=== PATIENT | male | born 1940 ===

== ENCOUNTER 2023-12-16 21:30 | Inpatient (IN) | payer MEDICARE, OTHER ==
[~2023-12-16] VITALS: Ht 162.6 cm; Wt 74.8 kg
[2023-12-16 22:26] VITALS: BP 95/51; TEMP 98.2; O2SAT 95
[2023-12-16] MEDS ORDERED: REMEDY ESSENTIAL ZINC PASTE 113 GM TOP PRN (22:30)
[2023-12-16] MEDS ORDERED: ASPI81TA53 PO (22:51)
[2023-12-16] MEDS ORDERED: CARV3.12 PO (22:51)
[2023-12-16] MEDS ORDERED: CHOL10005 PO (22:51)
[2023-12-16] MEDS ORDERED: TAMS-3 PO (22:51)
[2023-12-16] MEDS ORDERED: SENN8.6T19 PO (22:51)
[2023-12-16] MEDS ORDERED: METH5TAB70 PO (22:51)
[2023-12-16] MEDS ORDERED: ZINC57OI3 TP (22:51)
[2023-12-16] MEDS ORDERED: GABA-532 PO (22:51)
[2023-12-16] MEDS ORDERED: SIMV-46 PO (22:51)
[2023-12-16] MEDS ORDERED: ACET-2154 PO (22:51)
[2023-12-16] MEDS ORDERED: INSU100V39 SQ (22:51)
[2023-12-16] MEDS ORDERED: MIDO5TAB5 PO (22:51)
[2023-12-16] MEDS ORDERED: HYDR-3980 PO (22:51)
[2023-12-16] MEDS ORDERED: INSU100V7 SQ (22:51)
[2023-12-16] MEDS ORDERED: MULT-1045 PO (22:51)
[2023-12-17 04:43] VITALS: BP 117/55; TEMP 98.2; O2SAT 98
[2023-12-17] MEDS ORDERED: MULT-213 PO (09:30)
[2023-12-17] MEDS ORDERED: MULT-594 PO (09:33)
[2023-12-17 09:38] VITALS: BP 120/62; TEMP 98; O2SAT 96
[2023-12-17] MEDS ORDERED: NICO-671 TD (10:43)
[2023-12-17] MEDS: MULTIVITAMINS,THERAPEUTIC TABLET PO SCH (11:07)
[2023-12-17] MEDS: MIDODRINE HCL 5 MG TABLET PO SCH (11:07)
[2023-12-17] MEDS: ASPIRIN EC 81 MG TABLET.DR PO SCH (11:07)
[2023-12-17] MEDS: SENNOSIDES 1 TABLET PO SCH (11:07)
[2023-12-17] MEDS: CARVEDILOL 3.125 MG TABLET PO SCH (11:08)
[2023-12-17] MEDS ORDERED: DEXTROSE 50% 50 ML DISP.SYRIN IV PRN (11:15)
[2023-12-17] MEDS: BLOOD SUGAR DIAGNOSTIC 1 EACH STRIP VI SCH (12:00)
[2023-12-17] MEDS: INSULIN LISPRO 1000 UNITS/10 ML VIAL(HUMALOG) SQ SCH (12:00)
[2023-12-17] MEDS: INSULIN REGULAR, HUMAN 300 UNIT/3 ML VIAL SQ PRN (12:01)
[2023-12-17 13:43] LABS: BASOPHILS % (AUTO) 0.2 % (0.0-2.0); EOSINOPHILS # (AUTO) 0.1 K/uL (0.0-0.7); EOSINOPHILS % (AUTO) 0.9 % (0.0-7.0); HEMOGLOBIN 9.4 g/dL (12.5-16.3); LYMPHOCYTES # (AUTO) 0.8 K/uL (0.8-4.8); LYMPHOCYTES % (AUTO) 7.4 % (20.5-51.5); MEAN CORPUSCULAR HEMOGLOBIN 33.3 uug (23.8-33.4); MEAN CORPUSCULAR HGB CONC 33 g/dL (32.5-36.3); MEAN CORPUSCULAR VOLUME 99.6 fL (73.0-96.2); MONOCYTES # (AUTO) 0.6 K/uL (0.1-1.30); MONOCYTES % (AUTO) 5.6 % (0.0-11.0); NEUTROPHILS # (AUTO) 8.7 K/uL (1.8-8.9); NEUTROPHILS % (AUTO) 85.9 % (38.5-71.5); PLATELET COUNT (AUTO) 403 K/uL (152-348); RED BLOOD CELL COUNT(AUTO) 2.81 MIL/uL (4.06-5.63); RED CELL DISTRIBUTION WIDTH 15.8 % (12.1-16.2); WHITE BLOOD COUNT (AUTO) 10.2 K/uL (3.6-10.2)
[2023-12-17 13:44] LABS: DIFFERENTIAL COMMENT 1
[2023-12-17 14:06] LABS: ALBUMIN 2.2 g/dL (3.4-5.0); BILIRUBIN,TOTAL 0.3 mg/dL (0.2-1.0); CALCIUM 8.6 mg/dL (8.5-10.1); CREATININE 0.9 mg/dL (0.6-1.3); POTASSIUM 4.7 mmol/L (3.5-5.1); TOTAL PROTEIN, SERUM 6.7 g/dL (6.4-8.2)
[2023-12-17 16:29] VITALS: BP 128/47; TEMP 97.8; O2SAT 95
[2023-12-17] MEDS: GABAPENTIN 300 MG CAPSULE PO SCH (20:52)
[2023-12-17 20:53] VITALS: O2SAT 96
[2023-12-17] MEDS: TAMSULOSIN HCL 0.4 MG CAP.SR.24H PO SCH (20:53)
[2023-12-17] MEDS: SIMVASTATIN 20 MG TABLET PO SCH (20:53)
[2023-12-17] MEDS ORDERED: INSULIN GLARGINE,HUM 300 UNITS/3 ML CARTRIDGE SQ SCH (21:00)
[2023-12-17] MEDS: INSULIN GLARGINE,HUM 300 UNITS/3 ML CARTRIDGE SQ SCH (21:01)
[2023-12-17 21:18] VITALS: BP 105/54; TEMP 98.6; O2SAT 99
[2023-12-17] MEDS: HYDROCODONE/APAP 10-325 MG TABLET PO PRN (21:58)
[2023-12-18] VITALS (7 sets, daily range): BP systolic 108–121; BP diastolic 42–47; TEMP 97.8–99; O2SAT 94–99
[2023-12-18] MEDS: CHOLECALCIFEROL 1,000 UNIT TABLET PO SCH (08:51)
[2023-12-18] MEDS: NICOTINE 7 MG/24HR PATCH TD SCH (08:52)
[2023-12-18] MEDS: METHIMAZOLE 5 MG TABLET PO SCH (08:53)
[2023-12-18] MEDS ORDERED: DEXTROSE 50% 50 ML DISP.SYRIN IV PRN (12:45)
[2023-12-18] MEDS: BLOOD SUGAR DIAGNOSTIC 1 EACH STRIP VI SCH (17:48)
[2023-12-18] MEDS: INSULIN REGULAR, HUMAN 300 UNIT/3 ML VIAL SQ PRN (22:06)
[2023-12-18] MEDS ORDERED: GUAIFENESIN/DEXTROMETHORPHAN 5 ML UDC PO PRN (23:15)
[2023-12-18] MEDS ORDERED: BENZOCAINE/MENTH/CETYLPYRD LOZENGE MM PRN (23:15)
[2023-12-19 05:20] VITALS: BP 110/44; TEMP 98.2; O2SAT 93
[2023-12-19 08:00] VITALS: BP 108/45; TEMP 98.4; O2SAT 94
[2023-12-19 16:40] VITALS: BP 126/51; TEMP 97.9; O2SAT 96
[2023-12-19 19:35] VITALS: BP 133/57; TEMP 98.1; O2SAT 95
[2023-12-19 20:35] VITALS: O2SAT 95
[2023-12-19] MEDS: GUAIFENESIN/DEXTROMETHORPHAN 5 ML UDC PO PRN (22:32)
[2023-12-20 04:43] VITALS: O2SAT 96
[2023-12-20 05:35] VITALS: BP 104/48; TEMP 98.2; O2SAT 94
[2023-12-20 07:38] VITALS: BP 112/45; TEMP 98.2; O2SAT 95
[2023-12-20 08:36] VITALS: BP 119/44; TEMP 99.2; O2SAT 91
[2023-12-20 15:18] VITALS: BP 113/42; TEMP 97.4; O2SAT 92
[2023-12-20 20:00] VITALS: BP 134/54; TEMP 97.8; O2SAT 97
[2023-12-21 05:28] VITALS: BP 111/56; TEMP 97.5; O2SAT 100
[2023-12-21 05:30] VITALS: BP 116/46; TEMP 97.5; O2SAT 92
[2023-12-21 07:30] LABS: BASOPHILS % (AUTO) 0.2 % (0.0-2.0); EOSINOPHILS # (AUTO) 0.1 K/uL (0.0-0.7); EOSINOPHILS % (AUTO) 1.8 % (0.0-7.0); HEMATOCRIT 27.3 % (36.7-47.1); HEMOGLOBIN 9.2 g/dL (12.5-16.3); LYMPHOCYTES # (AUTO) 0.7 K/uL (0.8-4.8); MEAN CORPUSCULAR HEMOGLOBIN 33.6 uug (23.8-33.4); MEAN CORPUSCULAR HGB CONC 34 g/dL (32.5-36.3); MEAN CORPUSCULAR VOLUME 99.6 fL (73.0-96.2); MONOCYTES # (AUTO) 0.5 K/uL (0.1-1.30); MONOCYTES % (AUTO) 8.8 % (0.0-11.0); NEUTROPHILS # (AUTO) 4.8 K/uL (1.8-8.9); NEUTROPHILS % (AUTO) 78.2 % (38.5-71.5); PLATELET COUNT (AUTO) 279 K/uL (152-348); RED BLOOD CELL COUNT(AUTO) 2.74 MIL/uL (4.06-5.63); RED CELL DISTRIBUTION WIDTH 16.4 % (12.1-16.2); WHITE BLOOD COUNT (AUTO) 6.2 K/uL (3.6-10.2)
[2023-12-21 07:53] LABS: ALANINE AMINOTRANSFERASE 13 U/L (16-63); ALBUMIN 2.3 g/dL (3.4-5.0); ALKALINE PHOSPHATASE 73 U/L (50-136); ASPARTATE AMINOTRANSFERASE < 5 U/L (15-37); BILIRUBIN,TOTAL 0.4 mg/dL (0.2-1.0); CALCIUM 8.2 mg/dL (8.5-10.1); CARBON DIOXIDE 26 mmol/L (21-32); CHLORIDE 100 mmol/L (98-107); CREATININE 0.9 mg/dL (0.6-1.3); GLUCOSE 220 mg/dL (74-106); MAGNESIUM 2.2 mg/dL (1.8-2.4); PHOSPHOROUS 3.5 mg/dL (2.5-4.9); POTASSIUM 4.8 mmol/L (3.5-5.1); SODIUM SERUM 134 mmol/L (136-145); TOTAL PROTEIN, SERUM 6.5 g/dL (6.4-8.2); UREA NITROGEN, BLOOD 22 mg/dL (7-18)
[2023-12-21 07:56] LABS: DIFFERENTIAL COMMENT 1
[2023-12-21 08:33] VITALS: BP 118/43; TEMP 98.5; O2SAT 94
[2023-12-21] MEDS: GUAIFENESIN/DEXTROMETHORPHAN 5 ML UDC PO SCH (08:47)
[2023-12-21 16:23] VITALS: O2SAT 97
[2023-12-21] MEDS ORDERED: CLONAZEPAM 0.5 MG TABLET PO PRN (17:45)
[2023-12-21] MEDS: HALOPERIDOL LACTATE 5 MG/1 ML VIAL IM PRN (18:16)
[2023-12-21 20:00] VITALS: BP 113/47; TEMP 98.6; O2SAT 93
[2023-12-21 21:02] VITALS: O2SAT 94
[2023-12-22 06:19] VITALS: BP 124/54; TEMP 97.8; O2SAT 93
[2023-12-22] MEDS ORDERED: QUETIAPINE FUMARATE 25 MG TABLET PO PRN (09:00)
[2023-12-22] MEDS ORDERED: LORAZEPAM 0.5 MG TABLET PO PRN (09:00)
[2023-12-22 09:45] VITALS: BP 114/47; O2SAT 95
[2023-12-22] MEDS: ESCITALOPRAM OXALATE 10 MG TABLET PO SCH (10:11)
[2023-12-22] MEDS: MEMANTINE HCL 5 MG TABLET PO SCH (10:11)
[2023-12-22 14:40] VITALS: O2SAT 95
[2023-12-22 16:50] VITALS: BP 122/45; TEMP 98.3; O2SAT 93
[2023-12-22 19:57] VITALS: O2SAT 94
[2023-12-22 20:00] VITALS: BP 132/54; TEMP 98.1; O2SAT 93
[2023-12-22] MEDS: QUETIAPINE FUMARATE 25 MG TABLET PO SCH (21:33)
[2023-12-23 06:00] VITALS: BP 112/53; TEMP 97.6; O2SAT 93
[2023-12-23 07:45] VITALS: BP 107/45; TEMP 98.2; O2SAT 92
[2023-12-23 15:15] VITALS: BP 122/44; TEMP 97.6; O2SAT 98
[2023-12-23 20:00] VITALS: BP 117/48; TEMP 98.5; O2SAT 96
[2023-12-24 06:00] VITALS: BP 114/80; TEMP 97.7; O2SAT 92
[2023-12-24 08:45] VITALS: BP 116/43; TEMP 98.4; O2SAT 94
[2023-12-24 12:00] VITALS: BP 109/35; TEMP 98.6; O2SAT 94
[2023-12-24 16:31] VITALS: BP 120/52; TEMP 98.1; O2SAT 95; O2SAT 96
[2023-12-25 08:10] LABS: BASOPHILS % (AUTO) 0.3 % (0.0-2.0); EOSINOPHILS # (AUTO) 0.2 K/uL (0.0-0.7); EOSINOPHILS % (AUTO) 2.7 % (0.0-7.0); HEMATOCRIT 28.4 % (36.7-47.1); HEMOGLOBIN 9.5 g/dL (12.5-16.3); LYMPHOCYTES # (AUTO) 0.7 K/uL (0.8-4.8); LYMPHOCYTES % (AUTO) 11.8 % (20.5-51.5); MEAN CORPUSCULAR HEMOGLOBIN 32.9 uug (23.8-33.4); MEAN CORPUSCULAR HGB CONC 33 g/dL (32.5-36.3); MEAN CORPUSCULAR VOLUME 98.6 fL (73.0-96.2); MONOCYTES # (AUTO) 0.6 K/uL (0.1-1.30); MONOCYTES % (AUTO) 9.8 % (0.0-11.0); NEUTROPHILS # (AUTO) 4.3 K/uL (1.8-8.9); NEUTROPHILS % (AUTO) 75.4 % (38.5-71.5); PLATELET COUNT (AUTO) 227 K/uL (152-348); RED BLOOD CELL COUNT(AUTO) 2.88 MIL/uL (4.06-5.63); RED CELL DISTRIBUTION WIDTH 15.8 % (12.1-16.2); WHITE BLOOD COUNT (AUTO) 5.7 K/uL (3.6-10.2)
[2023-12-25 08:22] LABS: DIFFERENTIAL COMMENT 1
[2023-12-25 08:56] LABS: ALANINE AMINOTRANSFERASE 17 U/L (16-63); ALBUMIN 2.3 g/dL (3.4-5.0); ALKALINE PHOSPHATASE 72 U/L (50-136); ASPARTATE AMINOTRANSFERASE < 5 U/L (15-37); BILIRUBIN,TOTAL 0.4 mg/dL (0.2-1.0); CALCIUM 8.3 mg/dL (8.5-10.1); CARBON DIOXIDE 28 mmol/L (21-32); CHLORIDE 103 mmol/L (98-107); CREATININE 0.9 mg/dL (0.6-1.3); GLUCOSE 216 mg/dL (74-106); PHOSPHOROUS 3.1 mg/dL (2.5-4.9); POTASSIUM 4.6 mmol/L (3.5-5.1); SODIUM SERUM 139 mmol/L (136-145); TOTAL PROTEIN, SERUM 6.2 g/dL (6.4-8.2); UREA NITROGEN, BLOOD 22 mg/dL (7-18)
[2023-12-25 08:57] VITALS: BP 106/43; TEMP 98.9; O2SAT 92
[2023-12-25 11:39] VITALS: O2SAT 92
[2023-12-25] MEDS: ALBUTEROL SULFATE 2.5 MG/3 ML NEBU NEB PRN (11:39)
[2023-12-25 11:52] VITALS: O2SAT 99
[2023-12-25 16:11] VITALS: BP 126/43; TEMP 98.4; O2SAT 95
[2023-12-25 20:00] VITALS: BP 112/46; TEMP 98.6; O2SAT 96
[2023-12-26] VITALS (7 sets, daily range): BP systolic 102–138; BP diastolic 42–56; TEMP 97.5–98.6; O2SAT 93–99
[2023-12-27] VITALS (8 sets, daily range): BP systolic 97–125; BP diastolic 47–57; TEMP 97.7–98; O2SAT 93–99
[2023-12-27] MEDS: ALBUTEROL SULFATE 1.25 MG/3 ML NEBU NEB SCH (11:30)
[2023-12-27] MEDS ORDERED: ALBUTEROL SULFATE 8 GM HFA.AER.AD IH SCH (12:00)
[2023-12-27] MEDS: CLOTRIMAZOLE 1% CREAM 30 GM TUBE TOP SCH (17:51)
[2023-12-27] MEDS: ACETAMINOPHEN 325 MG TABLET PO PRN (22:38)
[2023-12-28] VITALS (8 sets, daily range): BP systolic 122–131; BP diastolic 47–54; TEMP 98–98.6; O2SAT 93–99
== END 2023-12-29 | disposition home health service (06) | DRG 559 ==
PROVIDERS: ADMIT Physical Medicine & Rehabilitation Pain Medicine; ATTEND Physical Medicine & Rehabilitation Pain Medicine
DX: Z47.81 Encounter for orthopedic aftercare following surgical amputation (principal); J18.9 Pneumonia, unspecified organism; D69.3 Immune thrombocytopenic purpura; E11.52 Type 2 diabetes mellitus with diabetic peripheral angiopathy with gangrene; F03.918 Unspecified dementia, unspecified severity, with other behavioral disturbance; F03.92 Unspecified dementia, unspecified severity, with psychotic disturbance; F03.93 Unspecified dementia, unspecified severity, with mood disturbance; E05.90 Thyrotoxicosis, unspecified without thyrotoxic crisis or storm; E11.22 Type 2 diabetes mellitus with diabetic chronic kidney disease; I12.9 Hypertensive chronic kidney disease with stage 1 through stage 4 chronic kidney disease, or unspecified chronic kidney disease; N18.30 Chronic kidney disease, stage 3 unspecified; I99.8 Other disorder of circulatory system; Z89.612 Acquired absence of left leg above knee; E11.40 Type 2 diabetes mellitus with diabetic neuropathy, unspecified; E78.5 Hyperlipidemia, unspecified; G47.30 Sleep apnea, unspecified; I25.10 Atherosclerotic heart disease of native coronary artery without angina pectoris; I25.5 Ischemic cardiomyopathy; N40.0 Benign prostatic hyperplasia without lower urinary tract symptoms; Z91.81 History of falling; I95.1 Orthostatic hypotension; Z79.4 Long term (current) use of insulin; Z79.899 Other long term (current) drug therapy; Z86.2 Personal history of diseases of the blood and blood-forming organs and certain disorders involving the immune mechanism; Z86.73 Personal history of transient ischemic attack (TIA), and cerebral infarction without residual deficits; Z87.891 Personal history of nicotine dependence; Z95.0 Presence of cardiac pacemaker; Z95.1 Presence of aortocoronary bypass graft; F39 Unspecified mood [affective] disorder; F29 Unspecified psychosis not due to a substance or known physiological condition
CPT/HCPCS: 36415; 71045; 83735; 84100; 84443; 84480; 85025; 93005; 94640; 94660; 94760; 97535-GO-CO; A4663; A9150; J1630; J1815